=== PATIENT | female | born 1960 ===

== ENCOUNTER → 2017-01-12 | Outpatient (CLI) | payer OTHER ==
[2017-01-12 11:16] LABS: URINE APPEARANCE TURBID (CLEAR); URINE COLOR DK YELLOW; URINE EPITHELIAL CELL AUTO 20-30 /lpf (0-5); URINE NITRITE NEG (NEG); URINE PH 5.5 (4.5-7.5); URINE SPECIFIC GRAVITY 1.029 (1.000-1.030); UROBILINOGEN NEG (NEG)
[2017-01-12 11:29] LABS: MANUAL MICROSCOPIC REQUIRED? NO; REVIEW REQ? YES; URINE BILIRUBIN NEG (NEG)
== END | disposition home or self-care (01) ==
LOC: C.LABSPEC 10:29
PROVIDERS: ATTEND Internal Medicine Hospice and Palliative Medicine
DX: C19 Malignant neoplasm of rectosigmoid junction (principal); Z48.3 Aftercare following surgery for neoplasm; R35.0 Frequency of micturition